=== PATIENT | male | born 1980 | race Hispanic/Latino ===

== ENCOUNTER 2019-04-30 01:32 | Emergency (ER) | payer SELFPAY ==
[2019-04-30] MEDS ORDERED: Ibuprofen 200 MG TAB ONE ×2 (01:54)
[2019-04-30] MEDS ORDERED: Adacel (T-DAP) 0.5 ML SYRINGE ONE (02:12)
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
== END 2019-04-30 09:09 | disposition home or self-care (01) ==
LOC: ERS 01:32
DX: S01.01XA Laceration without foreign body of scalp, initial encounter (principal); W20.8XXA Other cause of strike by thrown, projected or falling object, initial encounter
CPT/HCPCS: 12001; 70450; 72125; 90471; 90715

== ENCOUNTER 2019-11-14 18:06 | Emergency (ER) | payer SELFPAY ==
[2019-11-14] MEDS ORDERED: Adacel (T-DAP) 0.5 ML SYRINGE ONE (18:11)
[2019-11-14] MEDS ORDERED: HYDROcodone/Acetaminophen 10/325 mg Tablet ONE (18:18)
--- NOTE | 2019-11-14 19:35 | RAD ---
RIGHT SHOULDER RADIOGRAPHS THREE VIEWS: Date: 11-14-2019 Provided Clinical History: Pain status post injury. FINDINGS: There is no evidence of fracture or other acute osseous abnormality. If there is persistent clinical concern, conservative management and follow up imaging are advised. IMPRESSION: As above. POS: NADIA
== END 2019-11-14 19:48 | disposition home or self-care (01) ==
LOC: ERS 18:06 → EEVIPCON 18:06 → ERS 19:48
DX: S02.2XXA Fracture of nasal bones, initial encounter for closed fracture (principal); S40.011A Contusion of right shoulder, initial encounter; F17.220 Nicotine dependence, chewing tobacco, uncomplicated; Y04.0XXA Assault by unarmed brawl or fight, initial encounter
CPT/HCPCS: 90471; 90715

== ENCOUNTER 2022-04-18 11:42 | Emergency (ER) | payer SELFPAY | END 2022-04-18 12:30 | disposition home or self-care (01) | LOC: ERS 11:42 | DX: Z02.89 Encounter for other administrative examinations (principal); F17.220 Nicotine dependence, chewing tobacco, uncomplicated | CPT/HCPCS: 99282 ==